=== PATIENT | female | born 1995 | race Caucasian/White ===

== ENCOUNTER 2020-08-24 22:14 | Emergency (ER) | payer MEDICAID ==
[~2020-08-24] VITALS: Ht 162.6 cm; Wt 65.8 kg
[~2020-08-24 22:14] MED LIST: ALBU2.5V7 INH; ALBUTEROL; FLUT1DIS; PRED50TA PO
[2020-08-24 22:24] VITALS: BP_SYST 150
--- NOTE | 2020-08-24 22:24 | NUR ---
Placed in room 08 . Placed on cardiac nurse practitioner, blood pressure machine and pulse oximeter. To gown for exam. Side rails up.
--- NOTE | 2020-08-24 22:31 | NUR ---
Dr Tidwell evaluating patient at bedside
--- NOTE | 2020-08-24 22:40 | NUR ---
Pt BIB family to ED C/O hives since am. Allergic to tree nuts and strawberry, however, don't think she consumed either. No s/s of acute distress VSS Resting on gurney rails up
[2020-08-24] MEDS ORDERED: FAMOTIDINE PF 20 MG/2 ML VIAL IVP ONE (22:45)
[2020-08-24] MEDS ORDERED: NACL 0.9% 1,000 ML IV ONE (22:45)
[2020-08-24] MEDS ORDERED: methylPREDNISolone SOD SUCC/PF 62.5 MG/ML VIAL IVP ONE (22:45)
[2020-08-24] MEDS ORDERED: predniSONE 20 MG TABLET PO ONE (23:15)
[2020-08-24] MEDS ORDERED: FAMOTIDINE 20 MG TABLET PO ONE (23:15)
[2020-08-25] VITALS: BP_SYST 150
--- NOTE | 2020-08-25 | NUR ---
Patient given written and verbal discharge instructions and verbalizes understanding. ER MD discussed with patient the results and treatment provided. Patient in stable condition. ID arm band removed. Rx of Prednisone given. Patient educated on pain management and to follow up with PMD. Pain Scale 0/10 Opportunity for questions provided and answered. Medication side effect fact sheet provided.
== END 2020-08-25 | disposition home or self-care (01) ==
LOC: SED 22:14
DX: L50.9 Urticaria, unspecified (principal); J44.9 Chronic obstructive pulmonary disease, unspecified
CPT/HCPCS: 99283; J2930; J3490; J7512

== ENCOUNTER 2020-09-27 15:32 | Emergency (ER) | payer MEDICAID ==
[~2020-09-27] VITALS: Ht 152.4 cm; Wt 74.8 kg
[2020-09-27 15:35] VITALS: BP_SYST 157
--- NOTE | 2020-09-27 15:35 | NUR ---
Pt came to ER for low back pain, dysuria, pain with urination. Pt states she was referred to ER after reporting symptoms to primary physician. Pt currently resting in [facility], on monitor, VSS, awaiting MD brown.
--- NOTE | 2020-09-27 15:35 | NUR ---
Patient to ER bed 3 to gown for evaluation. Side rails up.
--- NOTE | 2020-09-27 15:45 | NUR ---
ER at bedside examining patient.
--- NOTE | 2020-09-27 16:21 | NUR ---
Pt resting in [facility] at this time VSS
[2020-09-27 16:22] LABS: C-REACTIVE PROTEIN QUANT 0.3 mg/dL (0-0.5); CALCIUM 8.8 mg/dL (8.4-11.0); CREATININE 0.79 mg/dL (0.55-1.30); POTASSIUM 3.5 mmol/L (3.5-5.1)
[2020-09-27 16:29] LABS: ALBUMIN 3.8 g/dL (3.4-4.8); TOTAL BILIRUBIN 0.4 mg/dL (0.0-1.0)
[2020-09-27 16:41] LABS: BASOPHILS % (AUTO) 0.7 % (0.0-2.0); EOSINOPHILS # (AUTO) 0.4 K/uL (0.0-0.4); EOSINOPHILS % (AUTO) 5.8 % (0.0-4.0); HEMOGLOBIN 12.3 g/dL (12.0-16.0); LYMPHOCYTES # (AUTO) 1.5 K/uL (1.0-5.5); LYMPHOCYTES % (AUTO) 24.7 % (20.5-51.5); MEAN CORPUSCULAR HEMOGLOBIN 32 pg (27-31); MEAN CORPUSCULAR HGB CONC 34 % (32-36); MEAN CORPUSCULAR VOLUME 95 fL (79.0-98.0); MONOCYTES # (AUTO) 0.5 K/uL (0.0-1.0); MONOCYTES % (AUTO) 8.1 % (1.7-9.3); NEUTROPHILS # (AUTO) 3.8 K/uL (1.8-7.7); NEUTROPHILS % (AUTO) 60.7 % (40.0-70.0); PLATELET COUNT (AUTO) 320 K/uL (130-430); RED BLOOD CELL COUNT(AUTO) 3.81 MIL/uL (4.2-6.2); WHITE BLOOD COUNT (AUTO) 6.2 K/uL (4.8-10.8)
[2020-09-27 16:50] LABS: PROTHROMBIN TIME 10.4 SECS (9.5-12.5)
[2020-09-27 17:18] LABS: BILIRUBIN,URINE NEGATIVE (NEGATIVE); COLOR,URINE YELLOW (YELLOW); GLUCOSE,URINE NEGATIVE (NEGATIVE); KETONES,URINE NEGATIVE (NEGATIVE); LEUKOCYTE ESTERASE ,URINE 1+ (NEGATIVE); NITRITE, URINE NEGATIVE (NEGATIVE); PH,URINE 7.5 (5.0-8.0); PROTEIN URINE NEGATIVE (NEGATIVE); UROBILINOGEN,URINE 0.2 (0.2-1.0)
[2020-09-27 17:23] LABS: BLOOD, URINE TRACE (NEGATIVE); CLARITY/URINE SLIGHTLY HAZY (CLEAR)
--- NOTE | 2020-09-27 17:27 | NUR ---
Pt resting in [facility] at this time, no distress noted.
[2020-09-27] MEDS ORDERED: IBUP-1969 PO (17:37)
[2020-09-27] MEDS ORDERED: NITR-85 PO (17:37)
[2020-09-27 18:04] LABS: BACTERIA,URINE MANY /HPF (None Seen); MUCUS,URINE None Seen /LPF (None Seen); RBC,URINE 0-3 /HPF (0-3); URINE AMORPHOUS PHOSPHATES 2+ /HPF (None Seen)
--- NOTE | 2020-09-27 18:19 | NUR ---
Dr Marti at bedside to check rectal tone with myself at bedside as Shaperon, procedure well tolerated by patient.
[2020-09-27] MEDS ORDERED: HYDR-3919 PO (18:26)
[2020-09-27] MEDS ORDERED: HYDROcodone/ACETAMIN 5-325 MG TAB (NORCO/ VICODIN) PO ONE (18:45)
[2020-09-27] MEDS ORDERED: IBUPROFEN 800 MG TABLET PO ONE (18:45)
[2020-09-27 19:20] VITALS: BP_SYST 115
--- NOTE | 2020-09-27 19:20 | NUR ---
Patient given written and verbal discharge instructions and verbalizes understanding. ER MD discussed with patient the results and treatment provided. Patient in stable condition. ID arm band removed. IV catheter removed intact and dressing applied, no active bleeding. Patient educated on pain management and to follow up with PMD. Pain Scale 0/10 Opportunity for questions provided and answered.
== END 2020-09-27 19:20 | disposition home or self-care (01) ==
LOC: SED 15:32
DX: R10.30 Lower abdominal pain, unspecified (principal); R30.0 Dysuria; J44.9 Chronic obstructive pulmonary disease, unspecified; Z91.018 Allergy to other foods; Z79.899 Other long term (current) drug therapy
CPT/HCPCS: 36415; 76376; 80053; 81000-TC; 81025; 82150-TC; 83605; 83615-TC; 83690-TC; 84703; 85025; 85610-TC; 85730-TC; 86140; 87086; 99284